=== PATIENT | male | born 1985 | race Caucasian/White ===

== ENCOUNTER 2022-02-07 12:42 | Emergency (ER) | payer OTHER, SELFPAY ==
--- NOTE | ~2022-02-07 | XR_ITS ---
EXAMINATION:XR cervical spine 4-5V DATE: 02/07/2022 13:50 INDICATION: Neck pain TECHNIQUE: AP, lateral, lateral swimmers and odontoid views of the cervical spine are provided. COMPARISON: None FINDINGS: There is straightening of the cervical spine which can be positional or due to muscular spa sm. Alignment is normal. The odontoid is intact. No fracture is identified. There is mild loss of int ervertebral disc space height at C6-7 and T7 T1. The vertebral body heights are maintained. Small deg enerative osteophytes project from the anterior endplates of multiple vertebral bodies. There is mild to moderate facet and uncovertebral joint osteoarthritis at C7-T1. Prevertebral soft tissues are nor mal. IMPRESSION: 1. Mild cervical spondylosis without acute findings. Reviewed, dictated and finalized at location F. [employer]
[2022-02-07 12:56] VITALS: BP 140/87; PULSE 72; RESP 18; TEMP 36.6; O2SAT 100
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
== END 2022-02-07 14:26 | disposition home or self-care (01) ==
PROVIDERS: Emergency Provider Nurse Practitioner Family; PCP Family Medicine
DX: M54.2 Cervicalgia (principal); J45.909 Unspecified asthma, uncomplicated; Z86.16 Personal history of COVID-19; F41.9 Anxiety disorder, unspecified; F32.A Depression, unspecified
CPT/HCPCS: 72050; 99213; G0463